=== PATIENT | female | born 1995 | race Caucasian/White ===

== ENCOUNTER 2017-04-09 13:35 | Emergency (ER) | payer OTHER ==
[~2017-04-09] VITALS: Ht 162.6 cm; Wt 52.8 kg
[2017-04-09 14:34] LABS: HEMATOCRIT 40.5 % (36.0-46.0); MCH 34.2 PG (29.0-34.0); MCHC 34.3 G/DL (30.0-36.0); MCV 99.5 FL (83-99); MEAN PLAT.VOLUME 12.4 uM^3 (9.5-12.4); PLATELET COUNT 139 K/uL (156-360); RBC DIS.WIDTH-CV 11.8 % (11.8-14.6); RBC DIS.WIDTH-SD 43.3 % (39-53); RED BLOOD COUNT 4.07 M/uL (3.80-5.20); WHITE BLOOD COUNT 8.9 K/uL (4.1-10.2)
[2017-04-09 14:54] LABS: TROP-I INTERPRETATION NEGATIVE; TROPONIN-I < 0.01 ng/mL (0.0-0.30)
[2017-04-09 15:05] LABS: ANION GAP 7 MEQ/L (2-14); CHLORIDE 108 MEQ/L (99-109); POTASSIUM 3.9 MEQ/L (3.7-5.4); SAMPLE HEMOLYSIS CHECK 0; SAMPLE ICTERIC CHECK 0; SAMPLE LIPEMIA CHECK 0; SODIUM 140 MEQ/L (136-147)
[2017-04-09 15:11] LABS: GFR ESTIMATE (CALCULATED) > 59 mL/min/; GLUCOSE 126 mg/dL (70-99); UREA NITROGEN (BUN) 13 mg/dL (9-23)
[2017-04-09 15:43] LABS: D-DIMER ELISA < 150.00 ng/mLDDU (<230)
[2017-04-09] MEDS ORDERED: VALACYCLOVIR500 MG PO (16:53)
[2017-04-09] MEDS ORDERED: NUVARING VAGIN1 EACH VG (16:53)
[2017-04-09 17:08] LABS: TROP-I INTERPRETATION NEGATIVE; TROPONIN-I < 0.01 ng/mL (0.0-0.30)
[2017-04-09 17:30] VITALS: BP 126/76
[2017-04-09] MEDS ORDERED: ZOFRAN4 MG PO (17:46)
== END 2017-04-09 17:56 | disposition home or self-care (01) ==
LOC: EME 13:35
PROVIDERS: Emergency Medicine
DX: R00.2 Palpitations (principal); R07.9 Chest pain, unspecified; J45.909 Unspecified asthma, uncomplicated; Z88.0 Allergy status to penicillin; Z88.8 Allergy status to other drugs, medicaments and biological substances; F17.200 Nicotine dependence, unspecified, uncomplicated
CPT/HCPCS: 71020; 80048; 84484; 85027; 85379; 93005; 99281; 99285; J2405; J7030